=== PATIENT | female | born 1995 | race Caucasian/White ===

== ENCOUNTER 2018-02-24 18:33 | Emergency (ER) | payer OTHER ==
[~2018-02-24] VITALS: Ht 157.5 cm; Wt 61.2 kg
[2018-02-24 18:51] VITALS: BP_SYST 136
--- NOTE | 2018-02-24 18:51 | NUR ---
Patient to ER bed 02 to gown for evaluation. Side rails up. Report given to MICAELA Mccullough
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
[2018-02-24] MEDS ORDERED: IBUPROFEN 600 MG TABLET PO ONE (19:00)
--- NOTE | 2018-02-24 19:00 | NUR ---
ER Dr. Gil at bedside examining patient.
--- NOTE | 2018-02-24 19:15 | NUR ---
Patient medicated for pain with motrin. Education provided. Patient verbalized understanding. Will continue to follow up and monitor.
[2018-02-24 19:27] VITALS: BP_SYST 136
--- NOTE | 2018-02-24 19:27 | NUR ---
Patient given written and verbal discharge instructions and verbalizes understanding. ER MD Dr. Flores discussed with patient the results and treatment provided. Patient in stable condition. ID arm band removed. Rx of Motrin given. Patient educated on pain management and to follow up with PMD within 2-3 days. Pain Scale 0/10. Opportunity for questions provided and answered. Medication side effect fact sheet provided.
== END 2018-02-24 19:27 | disposition home or self-care (01) ==
LOC: SED 18:33
DX: M79.10 Myalgia, unspecified site (principal); R03.0 Elevated blood-pressure reading, without diagnosis of hypertension; V89.2XXA Person injured in unspecified motor-vehicle accident, traffic, initial encounter; Y93.89 Activity, other specified; Y92.410 Unspecified street and highway as the place of occurrence of the external cause; Y99.8 Other external cause status
CPT/HCPCS: 81025; 99282